=== PATIENT | male | born 1965 | race Caucasian/White ===

== ENCOUNTER → 2020-10-23 | Outpatient (CLI) | payer BC ==
--- NOTE | 2020-10-23 18:29 | Diagnostic Imaging Report ---
INDICATION: Chronic cough. Time of exam: 3:15 PM No prior studies are available for comparison. The heart size is normal. There is an area of linear scarring or atelectasis in the right upper lobe. Otherwise, the lungs are clear. No effusion is seen. There is no pneumothorax. Pulmonary vascularity is normal. IMPRESSION: No acute cardiopulmonary process is detected. Dictated by: Dictated on workstation # [id number]
== END ==
LOC: RAD 14:35
PROVIDERS: ATTEND Nurse Practitioner Family
DX: R05 Cough (principal)
CPT/HCPCS: 71046

== ENCOUNTER → 2020-11-13 | Outpatient (CLI) | payer BC | LOC: LABNPT 06:26 | PROVIDERS: ATTEND Nurse Practitioner Family | DX: Z53.9 Procedure and treatment not carried out, unspecified reason (principal) ==